=== PATIENT | female | born 1950 | race Caucasian/White ===

== ENCOUNTER 2024-08-04 09:09 | Outpatient (AMB) | payer MEDICARE, SELFPAY ==
--- NOTE | 2024-08-04 09:28 | MHC.OFFVIS ---
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 She is doing well with mortuary operations manager concerns: She requests a pap today, she is worried about cervical cancer and wants a screening done even if she has to pay for it [id number]. Uses a vaginal moisturizer. She reports a recent loss of her brother who had complications from diabetes and heart disease. Currently not sexually active. Denies any vaginal dryness or irritation. STI testing offered; she declines. Attempting to eat a healthy diet with calcium and vitamin D, had PT for fractured hip in January. Last mammogram; 03/2025, no copies available. Colonoscopy is UTD. Denies any family history of breast, ovarian or colon cancer. 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 Female Reproductive History Menstrual Total pregnancies: 0 Review of Systems Const All systems reviewed & are unremarkable except as noted in HPI and below Reports as per HPI Eyes Reports no additional complaints ENT Reports no additional complaints Card Reports no additional complaints Resp Reports no additional complaints GI Reports as per HPI and Reports no additional complaints Reports as per HPI Musc Reports no additional complaints Skin/Breast Reports as per HPI Neuro Reports no additional complaints Psych Reports no additional complaints Endo Reports no additional complaints Barrett/Lymph Reports no additional complaints Aller/Immun Reports no additional complaints Physical Exam Vital Signs: Last Vital Signs BP 118/72 08/04/24 09:39 BMI result Body Mass Index 23.4 Const General: cooperative, healthy appearing, no acute distress, well developed and alert Orientation/consciousness: patient oriented x3 HEENT Head: Yes normal to inspection Eyes General: appearance normal, both eyes and all related structures Neck Neck: Yes normal visual inspection Thyroid: Thyroid normal Chest Chest palpation & inspection: normal inspection of the chest and other (no puckering, dimpling, peau de orange, retraction, discharge, masses) Breast/axilla inspection: normal inspection of the breasts Breast/axilla palpation: normal palpation of the breasts Resp Effort & Inspection: normal respiratory effort GI Inspection: Yes normal to inspection Palpation (GI): Soft to palpation Rectal Exam - Female: deferred General: Yes bladder normal to palpation External Female Exam: normal external appearance and normal appearance of the urethra Speculum Exam - Vagina: normal palpation and vagina atrophic (Moderate to severe atrophic changes with petechiae) Speculum Exam - Cervix: normal appearance of the cervix and normal palpation Bimanual exam- vagina & uterus: normal bimanual exam, normal palpation, uterine size normal, bladder normal to palpation, normal palpation and non-tender Bimanual Exam- Adnexa, other: no masses Skin General skin exam: no rashes or lesions noted Rashes: no rashes Neuro General: patient oriented x3 Cognition (Neuro): normal cognition Extrem General: Yes normal to inspection Psych Attitude: cooperative Thought process: Normal thought process present Assessment & Plan Assessment & Plan (1) Encounter for well woman exam with routine gynecological exam: Code(s): Z01.419 - Encounter for gynecological examination (general) (routine) without abnormal findings Category: Medical Plan Discussed: Current recommendations for pap smears per ASCCP guidelines. Aged out age 65 unless there is a history of abnormal Paps, or other symptoms inform that insurance can deny claims to a screening Pap smear at her age, she is adamant that her Pap be done today and again reiterates that she would consider paying [id number] as this is an important for her to have completed. Breast awareness, periodic self breast exams and yearly mammogram. Maintain a healthy lifestyle, well balanced diet including Calcium 1,200 mg and Vitamin D 600 IU daily, and routine exercise. Contact the office with any postmenopausal bleeding. Patient verbalizes understanding and agrees to the plan of care. She was given opportunity to ask questions and all questions were answered to the best of my ability. Return to the office 1-2 years, or as needed. This note is constructed using voice recognition software. While every effort has been made to ensure accuracy, director statistical programming errors may have been included. RTO in 1 year for annual mortuary operations manager exam. Coding Level of Care Code Est Pt Prev Care >65y(99743) Diagnoses Encounter for well woman exam with routine gynecological exam Z01.419
[2024-08-04 09:39] VITALS: BP 118/72; BMI 23.4
--- OUTSIDE RECORDS SUMMARY | 2024-08-04 09:50 | XMS_ITS ---
[facility] Address [address] [place] [address] Care Team Providers Care Armature Balancer Name Role Phone David Barrientos MD Primary Care Provider UnaKelly Cottrell Unavailable [phone] Allergies Allergen (clinical drug ingredient) Drug/Non Drug Allergy documented on EMR Reaction Allergy Type Onset Date Status Lamisil Unknown Drug Allergy Active REASON FOR VISIT PCP: 07/2023, Foot pain, Heel pain Medications Medication SIG (Take, Route, Fr equency, Duration) Notes Start Date End Date Status ALPRAZolam Active Lumigan 0.01 % 1 drop into affected eye in the evening Ophthalmic Once a day Active traZODone HCl 50 MG 1 tablet at bedtime as needed Orally Once a day Active Propranolol HCl 10 MG 1 tablet Orally Once a day Active Benzonatate 200 MG 1 capsule Orally Thr ee times a day Active Flonase Active Ipratropium Pierre Part Active Social History Tobacco Use: Social History Observation Description Date Details (start date - stop date) Never Smoker NA - NA Tobacco Use/Smoking Question Answer Notes Are you a: nonsmoker Additional Findings: Tobacco Non-User Current no n-smoker Tobacco use other than smoking: Question Answer Notes Are you an other tobacco user? 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) Active confirmed Vital Signs Height 5 ft 6 in in 09/02/2023 Weight 168 lbs 09/02/2023 BMI 27.11 kg/m2 09/02/2023 Encounters Encounter Location Date Provider Diagnosis [facility] [address] [place] [address] 09/02/2023 Kelly Reina Hallux valgus (acquired), right foot M20.11 ; Plantar fasciitis of right foot M72.2 and Calcaneal spur, right foot M77.31 Assessments Encounter Date Diagnosis (ICD Code) Assessment Notes Treatment Notes Treatment Clinical Notes Section Notes 09/02/2023 Hallux valgus (acquired), right foot (ICD-10 - M20.11) 09/02/2023 Plantar fasciitis of right foot (ICD-10 - M72.2) Patient Educated with: HEEL CORD STRETCHES.pdf (HEEL CORD STRETCHES.pdf) Patient Educated with: RICE THERAPY.pdf (RICE THERAPY.pdf) 09/02/2023 Calcaneal spur, right foot (ICD-10 - M77.31) Plan Of Treatment Treatment Notes Assessment Notes Plantar fasciitis of right foot Patient Educated with: HEEL CORD STRETCHES.pdf (HEEL CORD STRETCHES.pdf) Patient Educated with: RICE THERAPY.pdf (RICE THERAPY.pdf) Pending Test Test Name Order Date X ray : Foot, right 3V 09/02/2023 Next Appt Details Follow Up: prn, Reason: Progress Notes * Mariya DAVISON ADOB:11/1950 (73 yo F)Acc No.[id number]:09/02/2023 Progress Notes Patient:?Mariya Davison Provider:?Kelly Reina DPM :1950???Age:73 Y???Sex:Female D ate:09/02/2023 Address:[address] [place], [place] [address] Pcp:David Barrientos MD Subjective: * Chief Complaints: * ??? PCP: 07/2023Foot painHee l pain * HPI: ???Foot Pain:?Location:?Inside, Great toe joint, RIGHT.?Aggrevated:?any pressure.?Treatments:?rest/alter normal daily activity change in shoes innersoles.?Heel pain:?Location:?Proximal plantar aspect of Heel, RIGHT.?Duration:?several weeks.?Onset/Cause:?overuse.?Course:?resolved.?Aggrevated:?standing, walking, walking first thing in the morning/after rest.?Treatments:?rest/alter normal daily activity stretching custom orthoses.? * ROS:?General/Constitutional:?Nausea?denies.?Vomiting?denies.?Hunger Thirst?denies.?Loss appetite?denies.?Chills?denies.?Fatigue?admits.?Fever?denies.?Night Sweats?denies.?Unexplained weight loss?denies.?Unexplained weight gain?denies.?HEENTM:?Dentures?denies.?Dizziness?denies.?Glasses/contacts?admits.?Retinopathy?de nies.?Blurred/double vision?denies.?TMJ?denies.?Discharge/drainage?denies.?Implants?denies.?Sore throat?denies.?Dental implants?admits.?Hard of hearing ?denies.?Difficulty chewing/swallowing/speaking?denies.?Nose bleeds?denies.?Sore mouth?denies.?Respiratory:?On Oxygen?denies.?Pneumonia/pleurisy?denies.?Bronchitis?denies.?Emphysema?denies.?C oughing?denies.?Cough blood?denies.?Shortness of breath?denies.?Wheezing?denies.?Cardiovascular:?Pacemaker?denies.?MVP?denies.?WPW?denies.?CHF?denies.?Heart attack?denies.?Septal defect?denies.?Rapid beat?denies.?Chest pain ?denies.?Atrial Fib.?denies.?Murmur/Palpitations?denies.?Gastrointestinal:?Hemorrhoids?denies.?Stomach/Abdominal pain?denies.?Dark blood stool?denies.?Irritable bowel ?denies.?Constipation?denies.?Diarrhea?denies.?Hematology:?Swelling?denies.?Clots?denies.?Varicose Veins?denies.?Bruising?denies.?Bleeding problem?denies.?Genitourinary:?Blood urine?denies.?Frequent/Painfu/urination/bladder control?denies.?Kidney stones?denies.?Infection (UTI)?denies.?Nephropathy?denies.?sex trans dis (STD)?denies.?Prostate?denies.?Musculoskeletal:?Hammertoes?denies.?Bunions?admits.?Back Pain?denies.?Muscle Cramps/ Resting?denies.?Muscle cramps / walking?denies.?Generalized aches and pains?admits.?Weakness?admits.?Integ.:?[place]?denies.?Scars?admits.?Corns/calluses?denies.?Ingrown nails?denies.?Painful nails?denies.?Open Sores?denies.?Rashes?denies.?Neurologic:?Difficulty sleeping?admits.?Brain disorder?denies.?Numbness?denies.?Balance trouble?admits.?Confusion?denies.?Fainting/blackouts?denies.?Tingling?denies.?Tr emors?denies.? * Medical History:? * Surgical History:?Denies Pas t Surgical History * Hospitalization/Major Diagno stic Procedure:?Denies Past Hospitalization * Family History:?Mother: dece ased, stroke.?Father: , heart attack, high blood pressure.? * Social History:?Tobacco Use:?Tobacco Use/Smoking?Are you a:?nonsmoker ?Additional Findings: Tobacco Non-User?Current non-smoker ?Tobacco use other than smoking?Are you an other tobacco user??No ???Drugs/Alcohol:?Drugs?Have you used drugs other than those for medical reasons in the past 12 months??No ???Miscellaneous:?Caffeine: yes. ?no Exercise. ?Marital status: . 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 * Medications:?TakingIpratropi um Pierre Part Flonase Lumigan 0.01 % Solution 1 drop into affected eye in the evening Ophthalmic Once a dayALPRAZolam traZODone HCl 50 MG Tablet 1 tablet at bedtime as needed Orally Once a dayBenzonatate 200 MG Capsule 1 capsule Orally Three times a dayPropranolol HCl 10 MG Tablet 1 tablet Orally Once a dayMedication List reviewed and reconciled with the patientTaking Ipratropium Pierre Part Taking Flonase Taking Lumigan 0.01 % Solution 1 drop into affected eye in the evening Ophthalmic Once a dayTaking ALPRAZolam Taking traZODone HCl 50 MG Tablet 1 tablet at bedtime as needed Orally Once a dayTaking Benzonatate 200 MG Capsule 1 capsule Orally Three times a dayTaking Propranolol HCl 10 MG Tablet 1 tablet Orally Once a dayMedication List reviewed and reconciled with the patient * Allergies:?Lamisilyes[Allerg ies Verified] Objective: * Vitals:?Ht: 5 ft 6 in, Wt:16 8, BMI:27.11, Shoe size: 10-10.5 Wide, Ht-cm: 167.64 cm, Wt-k.2 kg. * Examination: ???General Examination: ?GENERAL APPEARANCE:?Reveals a pleasant, alert, well-nourished, well- developed, well hydrated individual, who demonstrates proper attention to hygiene/body habitus, and is in no acute distress, Pt serves as own?historian for office visit today.?ORIENTED:?person, place, and time.?Neurological: ?SENSORY:?Neurological exam reveals intact sensorium, pain sensation normal, vibration sensation intact, pinprick sensation is normal in the lower extremities, Pt denies, anesthesia, burning, paresthesia, tingling, B/L.?TINEL'S COMPRESSION:? Negative, Saphenous nerve distribution, Right , Negative tarsal tunnel, travis pedis, and medial calcaneal nerves.?DEEP TENDON REFLEXES:?Achilles, 07/19, B/L.?Vascular: ?DP PULSES:?08/16, B/L.?PT PULSES:?08/16, B/L.?CAPILLARY FILL TIME:?immediate, all digits, B/L.?SKIN TEMPERTURE GRADIENT OF THE LOWER EXTERMITIES:?warm to cool, proximal to distal, B/L.?HAIR GROWTH/TEXTURE/ELASTICITY/TURGOR:?normal, B/L.?PIGMENTATION:?normal, B/L.?EDEMA:?absent, B/L.?Dermatologic: ?SKIN FINDINGS:?Skin exam reveals normal texture, elasticity, and turgor. There are no masses. The interspaces are clear.?Orthopedic: ?MUSCLE STRENGTH:?5/5 all groups in a symmetrical fashion , B/L.?BUNION:? Medially prominent 1st MPJ,(-) Pain on palpation,inflammation present medially,Lateral tracking 1st MPJ incompletely reducible, RIGHT.?FOOTWEAR:? OT were inspected and noted to be severely worn, in poor condition not giving proper support at the present time.?X-Rays - IMAGING REPORT: ?Clinical Indication(s):? Evaluate Biomechanical Deformity .?Views:? 3 views of Foot RIGHT AP LAT LO.?Findings:?normal bone and soft tissue density consistent for patients age and sex, navicular/cuneiform plantar subluxation with anterior cyma line, positive infra-calcaneal exostosis positive retro-calcaneal exostosis.?HAV:?increased First Intermetatarsal angle and Hallux Abductus angle consistent with Bunion deformity noted, hypertrophy of the dorsal and medial 1st MTH without subchondral cyst.?Fracture:?Negative fractures identified.?Heel Pain: ?INSPECTION:? Minimal Pain on Palpation to Plantar Fascia med. and central bands, intrinsic musc., infra-calcaneal bursa, and med calc tubercle , RIGHT foot, No pain: posterior/superior heel, achilles bursa/tendon, sinus tarsi, peroneals, or with lateral heel compression; no limited STJ ROM, calor, or ecchymosis.? Assessment: * Assessment: 1.?Hallux valgus (acquired), right foot - M20.11?2.?Plantar fasciitis of right foot - M72.2 (Primary), Acute problem, Complicated w/ Multiple Tx Options(4),Dx New problem, Prognosis Uncertain (4)?3.?Calcaneal spur, right foot - M77.31? Plan: * Treatment: * Imaging:? * ?Imaging: X ray : Foot, right 3V * Procedure Codes:?91361 X-RAY EXAM OF RIGHT FOOT 3V, Modifiers: 26 , RT * Preventive Medicine:? ??Counseling:?Discussion:?-04: Office or other outpatient visit for the evaluation and management of a new patient, which required a medically appropriate history and/or examination and MODERATE level of DECISION MAKING for: 1 OR MORE CHRONIC PROBLEM(S) THATS WORSENING, 2 STABLE CHRONIC PROBLEMS, A NEWLY DIAGNOSED PROBLEM WITH UNCERTAIN PROGNOSIS, AN ACUTE COMPLICATED INJURY WITH MULTIPLE TREATMENT OPTIONS, OR AN ACUTE PROBLEM WITH ACCOMPANYING SYSTEMIC SYMPTOMS, THAT POSE(S) A MODERATE RISK OF MORBIDITY. THIS CONDITION MAY ALSO INCLUDE RX DRUG MANAGEMENT, OR A DECISON FOR MINOR SURGERY. The visit on the day of the encounter encompassed interpreting the data and educating the patient as to the nature of their condition, treatment options available according to their individual PMH, meds, allergies, and overall health/living conditions, as well as any potential risks or complications that may occur from a failure to adhere to, and participate in, the recommended course of therapy. The discussion included a complete verbal, and/or written explanation of the examination results, any x-rays taken, the proposed diagnosis, and outline of the treatment plan. A schedule for future care needs was also explained. The patient verbalized an understanding of the instructions at this time and agreed to be an active participant in their treatment. If the patient should think of any questions or concerns after the visit, I have encouraged the patient to call the office.?Digital Treatment:?I explained to the patient the risks/benefits of all the different treatment options for their pain including: No treatment at all, Rest, Ice, New/supportive/wider/deeper Shoegear, Digital Padding/Strapping/Taping/Bracing/Gel protective sleeves, Foot/Ankle AFO Bracing, Stretching exercises, Deep Tissue Massage, Arch support/shoe inserts with splay metatarsal padding, and Custom orthoses. I insisted that any digital devices be removed daily and not worn overnight for safety. The patient is to carefully examine the toes daily for any skin irritation while using any splinting or padding device. The advantages and disadvantages of each option were discussed and the patients questions re: shoegear, padding, custom vs prefabricated inserts, activity level, and consistency in home treatment regimens for optimal success were answered to their verbally confirmed satisfaction.?Discussion for Bunion sx:?Recomm, rest, ice, proper shoegear, padding, orthotics, anti-inflammatories or tylenol as tolerated, topical analgesics, cortisone injections, We elected to try conservative treatment at the present time.?Heel pain:?FASCIITIS: I explained to the patient the possible etiologies of Plantar Fasciitis including foot type/shoegear/activity level/exercise routine and the risks/benefits of all the different treatment options for heel pain including: No treatment at all, Rest, Ice, NSAIDs(only if well tolerated after meals), New/supportive Shoegear, Strappings and Tapings, Stretching exercises, Deep Tissue Massage, Heel cups/cushions, Arch support/shoe inserts, Custom orthoses, Topical analgesics including Aspercream/Voltaren gel, Night splint AFO for am stiffness, Cortisone injection therapy, Cast boot with crutches/cane/or walker for assisted ambulation, Physical Therapy, EPAT/ESWT, Interfil injection therapy, as well as surgical [place]/Endoscopic Fasciitomy surgical procedures if needed. Recommendations were made to limit barefoot walking, eliminate wearing nonsupportive shoegear (i.e. flip-flops or sandals, or a shoe with an easily bendable, foldable, or twistable sole) and wear shoegear with a good solid sole, a supportive arch, and plenty of room for an insert/orthotic if necessary. If wearing sandals was required by the patient, we recommended orthopedic sandals such as Orthoheel or Birkenstock even while in the home. If the patient wore heels in the past, we recommended they continue, but eliminate the use of flats. The advantages and disadvantages of each option were discussed and the patients questions re: types of shoegear, custom vs prefabricated inserts, activity level, PO vs Topical medications (and their respective potential complications/drug interactions/side effects), and consistency in home treatment regimens for optimal success were answered to their satisfaction. Literature detailing plantar fasciitis and the various treatment options were dispensed and reviewed.?Orthotics:?I explained to the patient the benefits of OT use. I explained that orthoses are medically necessary to decrease the foot pain through proper mechanical control, support of their foot, cushion the forefoot by supplementing the soft tissue, possibly delay of the progression of the bunion deformity, possibly prevent surgery, I explained to the patient the benefits of OT use. I explained that orthoses are medically necessary to decrease the foot pain through proper mechanical control, support of their foot , decrease stretch/strain on the plantar fascia, Rx OT refurbishment.?P.R.I.C.E.:?The patient was counseled on the use of P.R.I.C.E. and NSAIDS (if well tolerated) to aid in the recovery from their painful condition , Recommended Topical analgesics including Biofreeze/Aspercream/Voltaren gel, The patient was counseled on the use of P.R.I.C.E. and NSAIDS (if well tolerated) to aid in the recovery from their painful condition.?Shoe Gear Counseling:?The patient and I reviewed the types of shoes they should be wearing. My recommendation included obtaining a well-fitted shoe with a good supportive, non-foldable nor twistable sole, plenty of toe/room for the forefoot, and proper arch support. Based on todays examination, I recommended the patient look for new shoes, by having their feet professionally measured. We discussed that generally the best time of the day for a shoe fitting is the afternoon. Different shoes types and brands to best match the patients occupation and vocation were discussed. Specific brand selection will be up to the patient, their individual foot condition/deformities, and fit. The patient and I reviewed the standard new shoe break in period by wearing them for a few hours a day while checking for redness or sores as wear time is increased. The patient verbally confirmed to understanding the information discussed, The patient and I reviewed the types of shoes they should be wearing. My recommendation included obtaining a well-fitted shoe with a good supportive, non-foldable nor twistable sole, plenty of toe/room for the forefoot, and proper arch support. Based on todays examination, I recommended the patient look for new shoes, by having their feet professionally measured. We discussed that generally the best time of the day for a shoe fitting is the afternoon. Different shoes types and brands to best match the patients occupation and vocation were discussed. Specific brand selection will be up to the patient, their individual foot condition/deformities, and fit. The patient and I reviewed the standard new shoe break in period by wearing them for a few hours a day while checking for redness or sores as wear time is increased. The patient verbally confirmed to understanding the information discussed.?Stretching Exercises:?Stretching and deep tissue massage exercises for the patients injury/diagnosis were discussed and demonstrated, handouts were dispensed.?X-rays:?Discussed and reviewed the X-rays with the patient. We discussed how the findings relate to the patients symptoms/complaints. Answered any and all questions..? * Follow Up:?prn * Images: * Sign off status: Completed true * Provider:?Kelly Reina, DPM Date:? Generated for Printi oneal/Joan/eTransmitting on:?08/04/2024 09:50 AM EST History and Physical Notes * HPI (History of Present Illness) Category Sub-Category Detail Notes Category Not es Heel pain Duration: several weeks Location: Proximal plantar asp ect of Heel, RIGHT Onset/Cause: overuse Aggravated: standing, walking, w alking first thing in the morning/after rest Course: resolved Treatments: rest/alter normal da avril activity stretching custom orthoses Foot Pain Location: Inside, Great toe joint, RIG HT Aggravated: any pressure Treatments: rest/alter normal da avril activity change in shoes innersoles Examination Category Sub-Category Detail Notes Category Not es Neurological SENSORY: Neurological exa m reveals intact sensorium, pain sensation normal, vibration sensation intact, pinprick sensation is normal in the lower extremities, Pt denies, anesthesia, burning, paresthesia, tingling, B/L TINEL'S COMPRESSION: Negative, Saphenous nerve distribution, Right , Negative tarsal tunnel, travis pedis, and medial calcaneal nerves DEEP TENDON REFLEXES: Achilles, 2/4, B/L Dermatologic SKIN FINDINGS: Skin exam reveal s normal texture, elasticity, and turgor. There are no masses. The interspaces are clear Orthopedic BUNION: Medially promine nt 1st MPJ, (-) Pain on palpation, inflammation present medially, Lateral tracking 1st MPJ incompletely reducible, RIGHT FOOTWEAR: OT were inspected an d noted to be severely worn, in poor condition not giving proper support at the present time MUSCLE STRENGTH: 5/5 all groups in a symmetrical fashion , B/L General Examination GENERAL APPEARANCE: Reveals a pleasant, alert, well- nourished, well-developed, well hydrated individual, who demonstrates proper attention to hygiene/body habitus, and is in no acute distress, Pt serves as own historian for office visit today ORIENTED: person, place, and t vince Vascular DP PULSES (B): 3/4, B/L PT PULSES (B): 3/4, B/L CAPILLARY FILL TIME: immediate, all digi ts, B/L TEMPERTURE GRADIENT (C): warm to cool, p roximal to distal, B/L TROPHIC CONDITION-TEXTURE/ELASTICITY/TURGOR/HAIR GROWTH (B): normal, B/L EDEMA (C): absent, B/L PIGMENTATION: normal, B/L X-Rays - IMAGING REPORT Findings: normal b one and soft tissue density consistent for patients age and sex, navicular/cuneiform plantar subluxation with anterior cyma line, positive infra-calcaneal exostosis positive retro-calcaneal exostosis Fracture: Negative fractures i dentified HAV: increased First Inte rmetatarsal angle and Hallux Abductus angle consistent with Bunion deformity noted, hypertrophy of the dorsal and medial 1st MTH without subchondral cyst Views: 3 views of Foot RIGH T AP LAT LO Clinical Indication(s): Evaluate Biomech anical Deformity Heel Pain INSPECTION: Minimal Pain on Palpation to Plantar Fascia med. and central bands, intrinsic musc., infra-calcaneal bursa, and med calc tubercle , RIGHT foot, No pain: posterior/superior heel, achilles bursa/tendon, sinus tarsi, peroneals, or with lateral heel compression; no limited STJ ROM, calor, or ecchymosis
--- OUTSIDE RECORDS SUMMARY | 2024-08-04 09:50 | XMS_ITS ---
Author [facility] History of Medication Use Medication Directions Dispensed Refills Start Date End Date Stat propranolol completed Lumigan (drops) 1 drop both eyes at bedtime 09/18/2022 completed
--- OUTSIDE RECORDS SUMMARY | 2024-08-04 09:50 | XMS_ITS ---
Author Organization [facility] Address [address] [place] [address] Care Team Providers Care Manager Regional Sales Name Role Phone Iliana HERRERA, David Primary Care Provider Unava ilKelly Sheth Unavailable [phone] REASON FOR VISIT [place] Encounters Encounter Location Date Provider Diagnosis [facility] [address] [place] [address] 09/02/2023 Kelly Reina Plan Of Treatment No Information Progress Notes * JUANGeovannaMariya ADOB:11/1950 (73 yo F)Acc No.[id number]:09/02/2023 Patient:?Mariya Davison :1950???Age:73 Y???Sex:Female Address:[address] [place] [address], [address], [place] [address] * true * Date:? Generated for Merarii oneal/Joan/eTransmitting on:?08/04/2024 09:50 AM EST
--- OUTSIDE RECORDS SUMMARY | 2024-08-04 09:50 | XMS_ITS ---
Author Organization [facility] Address [address] [place] [address] Care Team Providers Care Finance Executive Name Role Phone Iliana HERRERA, David Primary Care Provider Unava ilKelly Sheth Unavailable [phone] REASON FOR VISIT bought Pedag Viva Sport Red # 41 Encounters Encounter Location Date Provider [facility] [address] [place] [address] 09/02/2023 Kelly Reina Plan Of Treatment No Information Progress Notes * Mariya DAVISON ADOB:11/1950 (73 yo F)Acc No.[id number]:09/02/2023 Patient:?Mariya Davison :1950???Age:73 Y???Sex:Female Address:[address] [facility], [place] [address] * true * Date:? Generated for Merarii oneal/Joan/eTransmitting on:?08/04/2024 09:50 AM EST
--- OUTSIDE RECORDS SUMMARY | 2024-08-04 09:50 | XMS_ITS | Patient Health Record ---
[facility] Address [address] [place] [address] Care Team Providers Care Watch Train Assembler Name Role Phone Iliana HERRERA, David Primary Care Provider Unava Kelly Monaco Unavailable [phone] Allergies Allergen (clinical drug ingredient) Drug/Non Drug Allergy documented on EMR Reaction Allergy Type Onset Date Status Lamisil Unknown Drug Allergy Active Reason For Referral No Information Medications Medication SIG (Take, Route, Fr equency, Duration) Notes Start Date End Date Status ALPRAZolam Active Lumigan 0.01 % 1 drop into affected eye in the evening Ophthalmic Once a day Active Flonase Active Ipratropium [place] Active traZODone HCl 50 MG 1 tablet at bedtime as needed Orally Once a day Active Propranolol HCl 10 MG 1 tablet Orally Once a day Active Benzonatate 200 MG 1 capsule [address] ee times a day Active Social History Tobacco Use: Social History [...] Status Risk Notes Problem Acquired hallux valgus (37434603) Hallux valgus (acquired), right foot (M20.11) Active confirmed Problem Interstitial myositis (50471247) Interstitial myositis of right foot (M60.171) Active confirmed Vital Signs Height 5 ft 6 in in 09/02/2023 Weight 168 lbs 09/02/2023 BMI 27.11 kg/m2 09/02/2023 Encounters Encounter Location Date Provider Diagnosis [facility] [address] 09/02/2023 Kelly Reina Hallux valgus (acquired), right foot M20.11 ; Plantar fasciitis of right foot M72.2 and Calcaneal spur, right foot M77.[address] [facility] [address] 09/02/2023 Kelly Reina [facility] [address] 09/02/2023 Kelly Reina Assessments Encounter Date Diagnosis (ICD Code) Assessment Notes Treatment Notes Treatment Clinical Notes Section Notes 09/02/2023 Hallux valgus (acquired), right foot (ICD-10 - M20.11) 09/02/2023 Plantar fasciitis of right foot (ICD-10 - M72.2) Patient Educated with: HEEL CORD STRETCHES.pdf (HEEL CORD STRETCHES.pdf) Patient Educated with: RICE THERAPY.pdf (RICE THERAPY.pdf) 09/02/2023 Calcaneal spur, right foot (ICD-10 - M77.31) Plan Of Treatment Pending Test Test Name Order Date X ray : Foot, right 3V 09/02/2023 Insurance Providers Payer Name Payer Address Payer Phone Subscriber Number Group Number Insured Name Patient Relationship to Insured Coverage Start Date Coverage End Date [facility] 65 Medicare Preferred [address] [place] [address] [id number] Mariya Davison Self - patient is the insured Medical (General) History Medical History History ICD Code Anxiety Depression Measles Mumps Chicken pox Surgical History Surgery Date(Month/Year)
== END 2024-08-04 10:23 | disposition home or self-care (01) ==
PROVIDERS: PCP Internal Medicine; Visit Provider Advanced Practice Midwife
DX: Z01.419 Encounter for gynecological examination (general) (routine) without abnormal findings (principal)
CPT/HCPCS: 99397; 99459

== ENCOUNTER 2024-08-04 09:09 | Outpatient (REF) | payer MEDICARE, SELFPAY ==
[2024-08-09 13:23] LABS: HPV Genotype 16 Negative (Negative); HPV Genotype 18 Negative (Negative); HPV High Risk Negative (Negative)
== END 2024-08-04 09:10 | disposition home or self-care (01) ==
LOC: HO.LNP 09:09
PROVIDERS: PCP Internal Medicine; Visit Provider Advanced Practice Midwife
DX: Z01.419 Encounter for gynecological examination (general) (routine) without abnormal findings (principal)
CPT/HCPCS: 87626; 88175; 99397; 99459